=== PATIENT | male | born 1945 | race Caucasian/White ===

== ENCOUNTER → 2018-04-11 | Outpatient (CLI) | payer OTHER ==
--- NOTE | 2018-04-11 16:32 | CARDNUC ---
[place] [address] CARDIAC NUCLEAR IMAGING REPORT Name: BRUCE GONZALEZ Room: [facility]#: [id number] Admission: 04/11/18 Attend Phys: Jed Ferris, Discharge: Date of : 45 Date of Service: 04/11/18 1632 Report #: [id number] THIS REPORT FOR: //name// APPROVED REPORT Imaging Protocol: Rest Tc-99m/Stress Tc-99m 1 day Study performed: 04/11/2018 07:15:00 Indication: Abnormal Stress Echo, LVF, Aortic valve insufficiency. Patient Location: Out-Patient Stress Tech: Rebekah Johnson Stress Nurse: Promise Daley RN NM Tech:DAVID Rodriguez Ht: 6 ft 1 in Wt: 240 lbs BSA: 2.33 m2 BMI: 31.66 Medical History Medical History: CAD non obstructive, Fatigue, HTN, Obesity , Weakness. Medications: ASA 81 Mg, Lisinopril, HCTZ, Zocor, K+ Citrate. Allergies: Flexeril, Tetanus. Cardiac Risk Factors: Age, HTN. Previous Cardiac Procedures: None Pretest Chest Pain Characteristics: No chest pain Exercise History: Indeterminate Physical Disabilities: Back Meds Held (24 hrs): None Resting Data Rest SPECT myocardial perfusion imaging was performed in supine position 30 minutes following the intravenous injection of 11.4 mCi of Tc-99m Sestamibi. Time of rest injection: 734 Date: 04/11/2018 Time of rest imagin The images were gated to evaluate regional wall motion and calculate left ventricular ejection fraction. Administration Route: IV Administration Site: Right AC Pharmacologic Stress Pharmacologic stress test was performed by injecting Regadenoson 0.4 mg IV push over 10-15 seconds immediately followed by the intravenous injection of 33.7 mCi [place]99[place] [address] CARDIAC NUCLEAR IMAGING REPORT Name: BRUCE GONZALEZ Room: [facility] [place]#: [id number] Admission: 04/11/18 Attend Phys: Jed Ferris, Discharge: Date of : 45 Date of Service: 04/11/18 1632 Report #: [id number] Sestamibi. Time of stress injection: 914 Time of stress imagin Administration Route: IV Administration Site: Right AC Gated Stress SPECT was performed 40 minutes after stress injection. The images were gated to evaluate regional wall motion and calculate left ventricular ejection fraction. Prone imaging was performed. Stress Test Details Stress Test: Pharmacologic stress was paired with low level exercise. Reason for pharmacologic stress test: physical limitation, arthritis, back discomfort.. HR Max Heart Rate (APMHR): 148 bpm Resting HR: 71 bpm Target HR (85% APMHR): 125 bpm Max HR Achieved: 119 bpm % of APMHR: 80 Recovery HR: 94 bpm HR response to stress: Normal HR response to stress BP Resting BP: 154/74 mmHg Max BP: 193/63 mmHg Recovery BP: 161/70 mmHg BP response to stress: Normal blood pressure response to stress. ECG Resting ECG: nsr Stress ECG: nsr ST Change: none Recovery ECG: nsr Recovery ST Change: none Clinical Reason for Termination: Completed protocol Stress Symptoms: Lightheaded Exercise duration: 4 min 00 sec Exercise capacity: 2.30 METs Nurse Comments 72 year old male presented for walking stress test. Patient unable to walk on incline and fast speed r/t back problems. Patient toelrated [place] [address] CARDIAC NUCLEAR IMAGING REPORT Name: CARLOSBRUCE LUTHER Room: [facility] [place]#: [id number] Admission: 04/11/18 Attend Phys: Jed Ferris, Discharge: Date of : 45 Date of Service: 04/11/18 1632 Report #: [id number] minimal side effects. Recovery unremarkable. Patient escorted by staff to Nuclear Medicine for images. Patient stable with no complaints at that time. Stress ECG Conclusion negative for ischemia Study Quality Study: Good Artifact: Mild Lung Uptake: Normal Study Data At rest, the left ventricular ejection fraction was 71%.. Post stress, the left ventricular ejection was 71%.. SSS: 4 SRS: 3 SDS: 1 TID = 0.81. Perfusion Review of rest data reveals normal perfusion, without perfusion defects.Imaging obtained following vasodilator stress demonstrate a similar, uniform uptake of tracer without defects. Prone imaging was normal. LVEDV is normal.No segental wall motion abnormality seen. Images were reviewed using [employer]. Wall Motion normal all segments Nuclear Conclusion ECG Findings: negative for ischemia Clinical Findings: negative for ischemia Nuclear Findings: negative for ischemia Exercise Capacity: not assessed Left Ventricular Function: normal Risk Study: low Normal perfusion nuclear stress test for ischemia/infarct[place] [address] CARDIAC NUCLEAR IMAGING REPORT Name: BRUCE GONZALEZ Room: [facility]#: [id number] Admission: 04/11/18 Attend Phys: Jed Ferris, Discharge: Date of : 45 Date of Service: 04/11/181631 Report #: [id number] <Conclusion> negative for ischemia <ELECTRONICALLY SIGNED> By: Jed Ferris MD, [facility] 04/11/181631 31 1632 Jed Ferris MD, FACC /INF
== END ==
LOC: M.NUC 07:22
DX: I35.1 Nonrheumatic aortic (valve) insufficiency (principal); R94.39 Abnormal result of other cardiovascular function study